=== PATIENT | female | born 1980 | race Caucasian/White ===

== ENCOUNTER 2022-11-10 09:44 | Emergency (ER) | payer SELFPAY ==
[2022-11-10] MEDS ORDERED: Morphine 4 MG/ML VIAL ONE (11:02)
[2022-11-10 11:11] LABS: #Eosinphils 0.2 10x3/uL (0.0-0.5); #Monocytes 0.4 10x3/uL (0.0-1.1); #Neutrophils 5.9 10x3/uL (1.5-8.4); %Basophils 0.2 % (0.0-2.0); %Eosinophils 2.1 % (0.0-6.0); %Lymphocytes 19.6 % (18.0-47.0); %Monocytes 5.1 % (0.0-10.0); %Neutrophils 72.8 % (40.0-75.0); Hematocrit 46.6 % (34.9-44.5); Hemoglobin 16.2 g/dL (12.0-15.5); Mean Corpuscular HGB CONC 34.8 g/dL (32.0-36.0); Mean Corpuscular Volume 89.1 fl (81.6-98.3); Mean Platelet Volume 11.2 fl (7.4-10.4); Platelet Count 252 10x3/uL (150-450); RBC Distribution Width 12.5 % (11.5-14.5); Red Blood Cell (RBC) Count 5.23 10x6/uL (3.90-5.03); White Blood Cell (WBC) Count 8.1 10x3/uL (3.5-10.5)
[2022-11-10 11:35] LABS: ALT (SGPT) 28 U/L (8-55); AST (SGOT) 31 U/L (5-34); Albumin 4.5 g/dL (3.5-5.0); Alkaline Phosphatase 114 U/L (40-110); Anion Gap 14 mmol/L (10-20); BUN (Urea Nitrogen) 6 mg/dL (7.0-18.7); Bilirubin, Total 0.6 mg/dL (0.2-1.2); Calc. Creatinine Clearance 0 mL/min (70-130); Calcium 10.3 mg/dL (7.8-10.44); Carbon Dioxide 25 mmol/L (22-29); Chloride 99 mmol/L (98-107); Estimated GFR 102; Globulin 3.5 g/dL (2.4-3.5); Glucose 95 mg/dL (70-105); Lipase 16 U/L (8-78); Magnesium 2.3 mg/dL (1.6-2.6); Sodium 134 mmol/L (136-145)
[2022-11-10 11:38] LABS: BHCG - Serum Negative (NEGATIVE)
[2022-11-10 11:39] LABS: Pregs Control Background? CLEAR/WHITE (CLR/WHITE); Pregs Control Bar Appear? YES (CONTROL BAR)
[2022-11-10 12:06] LABS: Bilirubin Neg (Negative); Blood, Urine Negative (Negative); Clarity Clear (Clear); Glucose, Urine (Dipstick) Normal (Negative); Ketone, Urine Negative (Negative); Leukocyte Negative (Negative); Nitrite Negative (Negative); Protein, Urine (Dipstick) Negative (Neg-Trace); Urobilinogen Normal mg/dL (Less than 2)
[2022-11-10 12:16] LABS: CAUTI Indications for Culture Pelvic or flank pain; RBC/HPF 0-3 HPF (0-3); WBC/HPF 0-3 HPF (0-3)
[2022-11-10 12:17] LABS: Bacteria/HPF 2+ HPF (None Seen)
[2022-11-10 12:18] LABS: Urine Culture Reflex No No
[2022-11-10 12:55] LABS: SARS-CoV-2 NAA Rapid Test Not Detected (NotDetected)
[2022-11-10] MEDS ORDERED: Iopamidol 370 76% 100 ML VIAL ONE (13:44)
[2022-11-10] MEDS ORDERED: Dicyclomine 20 MG/2 ML VIAL ONE (14:05)
== END 2022-11-10 14:15 | disposition home or self-care (01) ==
LOC: CSHERS 09:44
DX: R10.11 Right upper quadrant pain (principal); R19.7 Diarrhea, unspecified; E11.9 Type 2 diabetes mellitus without complications; Z87.891 Personal history of nicotine dependence
CPT/HCPCS: 36415; 74177; 76705; 80053; 81001; 83605; 83690; 83735; 84703; 85025; 96361; 96372; 96374; J2270; Q9967; U0002

== ENCOUNTER 2023-02-02 07:48 | Day surgery (SDC) | payer BC ==
[2023-02-01 12:18] VITALS: BMI 40.6
[2023-02-02] MEDS ORDERED: Midazolam HCl 2 mg/2 ml Vial ONE (11:05)
[2023-02-02] MEDS ORDERED: PROPOFOL 60 ML ONE (11:05)
== END 2023-02-02 12:00 | disposition home or self-care (01) ==
LOC: CSHSDC 07:48
PROVIDERS: ATTEND Internal Medicine Gastroenterology
PROC: 0DB68ZX Excision of Stomach, Via Natural or Artificial Opening Endoscopic, Diagnostic (ICD-10-PCS; principal; 2023-02-02)
DX: R10.9 Unspecified abdominal pain (principal); K21.9 Gastro-esophageal reflux disease without esophagitis; F17.210 Nicotine dependence, cigarettes, uncomplicated; E66.9 Obesity, unspecified; F32.A Depression, unspecified; G47.00 Insomnia, unspecified; Z88.0 Allergy status to penicillin; Z79.899 Other long term (current) drug therapy
CPT/HCPCS: 88305; J2250; J2704